=== PATIENT | male | born 1940 ===

== ENCOUNTER 2019-07-07 14:55 | Inpatient (IN) | payer MEDICARE ==
[~2019-07-07 14:55] MED LIST: MD-Gastroview 120 ML BOT ONE
[2019-07-07 15:17] VITALS: BMI 30.8
[2019-07-07] MEDS ORDERED: Dextrose 5% in Water 1,000 ML IV PRN (15:50)
[2019-07-07] MEDS ORDERED: Dextrose 50% Abboject 50 ML SYRINGE SLOW IVP PRN (15:50)
[2019-07-07] MEDS ORDERED: Sodium Chloride 0.9% 1,000 ML IV SCH (16:00)
[2019-07-07] MEDS ORDERED: Acetaminophen 1,000 MG in Premix Bag 1 BAG IVPB PRN (16:00)
[2019-07-07] MEDS: Ondansetron PF 4 MG/2 ML Vial IVP PRN ×2 (16:07→20:22)
--- NOTE | 2019-07-07 16:57 | HP ---
HISTORY OF PRESENT ILLNESS: Mr. Hinton is a 78-year-old gentleman who came into evaluation of recurrent vomiting and nausea. The patient reports he had been vomited since Thursday afternoon, 5 days ago. The patient had repeatedly vomiting and nauseated. Vomiting contents include brown and yellow color with no blood, average 4 to 5 times a day. The patient also has vomited with solid food ingestion. However, patient able to consume water or fluid. He reports no pain, he he had the feeling of pressure and bloating of his abdomen. His last bowel was yesterday. Reports of not formed bowel. The patient reports no fever or shortness of breath. REVIEW OF SYSTEMS: Noncontributory except as per HPI. PAST MEDICAL HISTORY: Hypertension, gout, and GERD. PAST SURGICAL HISTORY: The patient had right inguinal hernia repair 3 to 4 times 45 years ago. The patient reports there is a mesh implant. SOCIAL HISTORY: The patient lives at home by himself. The patient drinks on an average 8 beers a week. Denies drug use, denies smoking. ALLERGY: NKDA PHYSICAL EXAMINATION: GENERAL: The patient lying down in bed, comfortable, with no acute respiratory distress. No pain to be reported. VITAL SIGNS: Temperature 98.2, heart rate 80, respiratory rate 18, O2 saturation 96% on room air, blood pressure 161/80. LUNGS: Clear bilaterally. HEART: Regular rate and rhythm. ABDOMEN: Moderately distended. Mild tender to palpation, generalized. The patient has a scar of the right lower abdomen. No bulging through the scar. No bulging on other areas of upper abdomen. Bowel sounds active. EXTREMITIES: Neurovascularly intact x4. NEUROLOGIC: No focal neurology deficits. The patient is alert and awake. GCS 15. ASSESSMENT: 1. Small-bowel obstruction. 2. History of right inguinal hernia repair with mesh. 3. History of hypertension, gout, and acid reflux. PLAN: The patient will have small bowel follow-through with urgency. The patient will have Tylenol for pain control. Depending on small bowel follow-through result, Dr. Allen will decide if the patient will need to go to the OR or not. Dr. Allen saw the patient and discussed the treatment plan. Job ID: [id number] [facility]
[2019-07-07] MEDS ORDERED: Acetaminophen 500 MG TAB PO PRN (17:17)
[2019-07-07] MEDS ORDERED: Acetaminophen 1,000 MG in Premix Bag 1 BAG IVPB SCH (18:00)
[2019-07-07] MEDS: Sodium Chloride 0.9% 1,000 ML IV SCH (18:27)
--- NOTE | 2019-07-07 18:31 | RAD ---
Small bowel series: 07/07/2019 HISTORY: 78-year-old male with small bowel obstruction. FINDINGS: [employer] Technician view demonstrates air-filled dilated small bowel loops centrally. Staghorn calculus at right re nal lower pole calyces. IV contrast material fills urinary bladder from recent CT at [place]. Levoscoliosis with high-grade lumbar spondylosis. Gastrografin passes through a dilated small bowel l oops. It is visualized faintly in nondilated right hemicolon and right transverse colon by 1 and 1.5 hours, respectively. A loop of compressed small intestine is present inferior to the pelvis on th e right, probably in the scrotum. IMPRESSION: 1. Partial small bowel obstruction at right inguinal-scrotal hernia. 2. Right renal staghorn calculus.
[2019-07-07] MEDS: Famotidine/PF 20 mg/2ml Vial SLOW IVP SCH (20:22)
[2019-07-07] MEDS ORDERED: Tamsulosin HCl 0.4 MG CAP PO SCH (21:00)
--- NOTE | 2019-07-07 21:10 | PRG ---
DATE OF SERVICE: SUBJECTIVE: Mr. Hinton is a 78-year-old man with history of multiple right inguinal herniorrhaphies x2 with mesh as well as left inguinal herniorrhaphy. He presented with recurrent abdominal bloating, nausea, and vomiting. Abdominal pain has since resolved. Last time he passed gas was yesterday. Last bowel movement was during the small bowel follow-through. He has not passed any flatus since. It has been approximately 4 hours since the completion of the small bowel follow-through, which revealed contrast in the right colon at 1 hour, although partial small bowel obstruction was noted within the right inguinal hernia sac. In the interim, the patient reports having had multiple small bouts of bilious emesis. At this time of my evaluation, he has no nausea. OBJECTIVE: VITAL SIGNS: Current vital signs include blood pressure 142/68 pulse is 80, respiratory rate is 18, temperature is 98.3 degrees Fahrenheit, oxygen saturation is 97% on room air. HEART: Reveals regular rate and rhythm. LUNGS: Clear to auscultation bilaterally. Breathing, regular and nonlabored. ABDOMEN: Soft, nontender, and nondistended. Examination of the right inguinal canal reveals easily reducible small bowel contents with no tenderness to palpation. Clearly, patient has no peritoneal signs on examination. : The scrotum is examined. There are no masses within the scrotum. LABORATORY FINDINGS: I did review the CT scan of the abdomen and pelvis, which accompanied the patient from [place], which reveals multiple distended loops of small bowel with apparent transition within large right inguinal sac. The CT scan of the abdomen and pelvis was with IV but no oral contrast. IMPRESSION: 1. Acute partial small-bowel obstruction secondary to incarcerated right inguinal hernia. 2. There is no evidence of strangulation on clinical or laboratory examinations. PLAN: 1. Continue with conservative management. 2. IV hydration has been initiated. We will increase activity as tolerated. 3. We will start chemical VTE prophylaxis. Given the patient has had 3 previous inguinal herniorrhaphies, the right of which has failed, I discussed with him the need for laparoscopic versus open inguinal herniorrhaphy. 4. If this resolves with conservative management, the patient will be referred to [facility] for elective laparoscopic versus robotic-assisted inguinal herniorrhaphy. 5. If clinical indication dictates, open right inguinal herniorrhaphy versus laparotomy will be undertaken. Above findings and plan discussed with the patient in the presence of his nurse. The patient indicates understanding of information given. I have answered his questions. Job ID: [id number] [facility]
[2019-07-07] MEDS: hydrALAZINE 20 MG/ML VIAL SLOW IVP PRN (23:12)
[2019-07-08] MEDS ORDERED: Zolpidem Tartrate 5 MG TAB PO PRN (01:50)
[2019-07-08] MEDS ORDERED: Melatonin 3 MG TAB PO PRN (01:50)
[2019-07-08] MEDS: Ondansetron PF 4 MG/2 ML Vial IVP PRN ×2 (02:49→09:15)
[2019-07-08 05:20] LABS: #Lymphocytes 1.3 thou/uL (1.20-3.40); #Monocytes 1.8 thou/uL (0.11-0.59); #Neutrophils 12.2 thou/uL (1.40-6.50); %Basophils 0.2 % (0.0-1.0); %Eosinophils 0.1 % (0.0-10.0); %Lymphocytes 8.2 % (21.0-51.0); %Monocytes 11.6 % (0.0-10.0); %Neutrophils 79.9 % (42.0-75.0); Hemoglobin 13.8 g/dL (14.0-18.0); Mean Corpuscular HGB CONC 32.6 g/dL (32.0-36.0); Mean Corpuscular Hemoglobin 27.9 pg (27.0-31.0); Mean Corpuscular Volume 85.6 fL (78.0-98.0); Platelet Count 258 thou/uL (130-400); RBC Distribution Width 14.6 % (11.5-14.5); Red Blood Cell (RBC) Count 4.94 mill/uL (4.70-6.10); White Blood Cell (WBC) Count 15.3 thou/uL (4.8-10.8)
[2019-07-08 05:37] LABS: Phosphorus 3.6 mg/dL (2.3-4.7)
[2019-07-08 05:40] LABS: Anion Gap 16 mmol/L (10-20); BUN (Urea Nitrogen) 22 mg/dL (8.4-25.7); Calc. Creatinine Clearance 80 mL/min (70-130); Calcium 9.2 mg/dL (7.8-10.44); Carbon Dioxide 24 mmol/L (23-31); Chloride 103 mmol/L (98-107); Estimated GFR-MDRD 60; Glucose 123 mg/dL (83-110); Magnesium 2.4 mg/dL (1.6-2.6); Potassium 3.2 mmol/L (3.5-5.1); Sodium 140 mmol/L (136-145)
[2019-07-08] MEDS: Sodium Chloride 0.9% 1,000 ML IV SCH ×2 (06:27→14:40)
[2019-07-08] MEDS: hydrALAZINE 20 MG/ML VIAL SLOW IVP PRN (09:14)
[2019-07-08] MEDS: Famotidine/PF 20 mg/2ml Vial SLOW IVP SCH ×2 (09:16→20:32)
[2019-07-08] MEDS: Furosemide 20 MG TAB PO SCH (09:20)
[2019-07-08] MEDS: Allopurinol 300 MG TAB PO SCH (09:20)
[2019-07-08] MEDS: Tamsulosin HCl 0.4 MG CAP PO SCH (09:20)
[2019-07-08] MEDS: Escitalopram Oxalate 20 mg Tablet PO SCH (09:20)
[2019-07-08] MEDS: Citalopram 20 MG TAB PO SCH (09:20)
[2019-07-08] MEDS ORDERED: Lisinopril 20 MG TAB PO SCH (16:30)
--- NOTE | 2019-07-08 16:39 | PRG ---
DATE OF SERVICE: 07/08/2019 SUBJECTIVE: Mr. Hinton is a 78-year-old man, history of multiple right inguinal herniorrhaphies with mesh, presented with acute abdominal distention with inability to have bowel movement. Initial workup was suggestive of acute partial small-bowel obstruction and possible transition zone and incarcerated right inguinal hernia. Overnight, the patient has had multiple bowel movements and passing flatus. He denies any abdominal pain. Urinary output is adequate. OBJECTIVE: VITAL SIGNS: Include blood pressure is 149/79, pulse 80, respiratory rate is 18, temperature is 98 degrees Fahrenheit, oxygen saturation 96% on room air. HEART: Reveals regular rate and rhythm. LUNGS: Clear to auscultation bilaterally. Breathing, regular and nonlabored. ABDOMEN: Soft, nontender, nondistended. Bowel sounds are present in all 4 quadrants. EXTREMITIES: 2+ radial and pedal pulses bilaterally. No ankle edema is present. NEUROLOGIC: Reveals no focal deficits present. LABORATORY FINDINGS: Include a CBC with 15,300 white blood cells, hemoglobin and hematocrit 13.8 and 42.3 respectively. Platelet count is 258,000. Metabolic profile; sodium 140, potassium 3.2, chloride is 103, bicarb is 24, BUN is 22, creatinine is 1.17, glucose 123, magnesium 2.4, and phosphorus 3.6. IMPRESSION: 1. Resolving acute partial small-bowel obstruction. 2. Acute hypokalemia. PLAN: 1. Correct abnormal electrolytes. 2. Resume diet and increase activity. 3. Anticipate discharge within the next 24 hours if the patient continues to tolerate diet with no onset of abdominal pain. Job ID: [id number]
[2019-07-08] MEDS ORDERED: rOPINIRole HCl 0.5 MG TAB PO SCH (21:00)
[2019-07-09] MEDS: Tamsulosin HCl 0.4 MG CAP PO SCH (08:58)
[2019-07-09] MEDS: Allopurinol 300 MG TAB PO SCH (08:58)
[2019-07-09] MEDS: Citalopram 20 MG TAB PO SCH (08:58)
[2019-07-09] MEDS: Furosemide 20 MG TAB PO SCH (08:58)
[2019-07-09] MEDS: Escitalopram Oxalate 20 mg Tablet PO SCH (08:58)
[2019-07-09] MEDS: Famotidine/PF 20 mg/2ml Vial SLOW IVP SCH (08:59)
[2019-07-09] MEDS ORDERED: Lisinopril 20 MG TAB PO SCH (09:00)
[2019-07-09 11:55] VITALS: BP 180/75; TEMP 98.2
--- NOTE | 2019-07-09 14:19 | DIS ---
DATE OF ADMISSION: 07/07/2019 DATE OF DISCHARGE: 07/09/2019 ADMISSION DIAGNOSES: 1. Small-bowel obstruction. 2. History of right inguinal hernia repair with mesh. 3. History of hypertension, gout, and acid reflux. CONSULTATIONS: None. PROCEDURES: None. SUMMARY: The patient is a 78-year-old man who presented to the emergency department with a history of recurrent nausea and vomiting and abdominal distention with some constipation. The patient was admitted to the surgical floor where the following day he underwent small-bowel follow-through that showed that he had a partial small-bowel obstruction. The patient that day also had multiple bowel movements, was tolerating clear liquid diet, advanced his diet the following day which he tolerated. He was continuing to pass gas and have bowel movements. He remained stable and afebrile and was able to be discharged home. The patient's right inguinal hernia will require followup and we have recommended that the patient follow up with Dr. Ham. He has been provided the information to call regarding followup with Dr. Ham. He may return to see us as needed. Job ID: [id number]
== END 2019-07-09 15:00 | disposition home or self-care (01) | DRG 395 ==
LOC: SURG A 14:55
PROVIDERS: ADMIT Surgery; ATTEND Surgery
DX: K40.30 Unilateral inguinal hernia, with obstruction, without gangrene, not specified as recurrent (principal); K21.9 Gastro-esophageal reflux disease without esophagitis; M10.9 Gout, unspecified; I10 Essential (primary) hypertension; E87.6 Hypokalemia
CPT/HCPCS: 36415; 74250; 80048; 83735; 84100; 85025; J0360; J2405; Q9963; S0028